=== PATIENT | male | born 1995 | race African-American/Black ===

== ENCOUNTER 2017-06-14 20:43 | Emergency (ER) | payer SELFPAY ==
[~2017-06-14] VITALS: Ht 185.4 cm; Wt 83.9 kg
[~2017-06-14 20:43] MED LIST: BENADRYL25 M3 PO; BENADRYL25 MG ORAL; CEPHALEXIN500 MG PO; CHLORPHENIRAMINE4 MG ORAL; IBUPROFEN600 MG ORAL; IBUPROFEN600 MG PO; LEVAQUIN500 MG ORAL; NKM; NORCO 5-325 TA1 EACH ORAL; PREDNISONE10 MG ORAL; PREDNISONE20 MG ORAL; TRAMADOL HCL50 MG ORAL; VISTARIL50 MG ORAL; ZOFRAN ODT4 MG ORAL
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
[2017-06-14] MEDS ORDERED: IBUPROFEN600 MG ORAL (21:50)
[2017-06-14 22:00] VITALS: BP 132/80
--- NOTE | 2017-06-15 09:48 | Diagnostic Imaging Report ---
Indication: Pain Technique: 2 views of the right tibia and fibula Comparison: none Findings: No acute fractures. No dislocations. Joint spaces are preserved Impression: Negative
--- NOTE | 2017-06-15 09:49 | Diagnostic Imaging Report ---
Indications: Pain Technique: Three views of the ] knee Comparison: None Findings: No acute fractures. No dislocations. Joint spaces are preserved. No radiopaque foreign body. Normal mineralization. Impression: No acute process
== END 2017-06-14 22:00 | disposition home or self-care (01) ==
LOC: EMR 21:30
DX: S83.91XA Sprain of unspecified site of right knee, initial encounter (principal); V43.52XA Car driver injured in collision with other type car in traffic accident, initial encounter; Y92.410 Unspecified street and highway as the place of occurrence of the external cause
CPT/HCPCS: 99284